=== PATIENT | male | born 1990 | race Caucasian/White ===

== ENCOUNTER 2016-08-24 12:30 | Emergency (ER) | payer MEDICAID, OTHER ==
[2016-08-24 12:36] VITALS: BMI 22.1
[2016-08-24 12:37] VITALS: BP 119/79; PULSE 63; RESP 18; TEMP 97.5; O2SAT 100
--- NOTE | 2016-08-24 13:07 | RAD ---
PROCEDURE: Left Foot Radiographs. HISTORY: pain toes 2-3 s.p injury COMPARISON: None. FINDINGS: BONES: Normal. No fracture. JOINTS: Normal. SOFT TISSUES: Normal. OTHER FINDINGS: None. IMPRESSION: Normal left foot radiographs.
--- NOTE | 2016-08-24 13:10 | C.PDOC ---
History Of Present Illness 25 y/o male presents to the ED with complaints of left foot pain. Pt states he injured the foot getting out of the tub on 08/18 and has had pain since, worse to the 2nd and 3rd toes. Pain with walking. Pt missed work today due to pain. No medications taken. Denies weakness, numbness or any other complaints. Time Seen by Provider: 08/24/16 12:47 Chief Complaint (Nursing): Lower Extremity Problem/Injury History Per: Patient History/Exam Limitations: no limitations Onset/Duration Of Symptoms: Days Current Symptoms Are (Timing): Still Present Severity: Moderate Recent travel outside of the [place]: No - Ankle/Foot Description Of Injury: Struck Against Object Past Medical History Reviewed: Historical Data, Nursing Documentation, Vital Signs Vital Signs: Last Vital Signs Temp 97.5 F L 08/24/16 12:37 Pulse 63 08/24/16 12:37 Resp 18 08/24/16 12:37 BP 119/79 08/24/16 12:37 Pulse Ox 100 08/24/16 13:10 Family History: States: Unknown Family Hx - Social History Hx Alcohol Use: No Hx Substance Use: No - Immunization History Hx Tetanus Toxoid Vaccination: Yes Hx Influenza Vaccination: Yes Hx Pneumococcal Vaccination: Yes Review Of Systems Musculoskeletal: Positive for: Other (left foot pain) Neurological: Negative for: Weakness, Numbness Physical Exam - Physical Exam Appears: Non-toxic, No Acute Distress Skin: Warm, Dry, No Rash Head: Atraumatic, Normacephalic Extremity: Normal ROM, Capillary Refill (<2 seconds), No Deformity, Other (mild tenderness to left 2nd and 3rd toes, no swelling or ecchymosis) Pulses: Left Dorsalis Pedis: Normal Neurological/Psych: Oriented x3, Normal Speech, Normal Motor, Normal Sensation ED Course And Treatment O2 Sat by Pulse Oximetry: 100 (room air) Pulse Ox Interpretation: Normal Medical Decision Making Medical Decision Making: Plan: * XR left foot XR normal, no fracture or dislocation Disposition Counseled Patient/Family Regarding: Studies Performed, Diagnosis, Need For Followup, Rx Given - Disposition Referrals: Podiatry Clinic [Outside] Disposition: HOME/ ROUTINE Disposition Time: 13:09 Condition: STABLE Additional Instructions: Your xray is normal, no fracture. Please apply ice to area 15-20 min two to three times per day. Take Motrin or other anti-inflammatory medication, with food to not upset stomach. Follow up with orthopedic if pain persists over one week. Prescriptions: Ibuprofen [Motrin] 1 tab PO TID PRN #30 tab PRN Reason: Pain Instructions: Foot Sprain (ED) - POA Present On Arrival: None - Clinical Impression Clinical Impression: Right foot strain, Toe contusion - PA / SSAS DEVELOPER / Resident Statement MD/DO has reviewed & agrees with the documentation as recorded. - Scribe Statement The provider has reviewed the documentation as recorded by the [employer] [place] All medical record entries made by the [employer] were at my direction and personally dictated by me. I have reviewed the chart and agree that the record accurately reflects my personal performance of the history, physical exam, medical decision making, and the department course for this patient. I have also personally directed, reviewed, and agree with the discharge instructions and disposition.
== END 2016-08-24 13:16 | disposition home or self-care (01) ==
LOC: C.ER 12:30
DX: S96.912A Strain of unspecified muscle and tendon at ankle and foot level, left foot, initial encounter (principal); S90.122A Contusion of left lesser toe(s) without damage to nail, initial encounter; W22.8XXA Striking against or struck by other objects, initial encounter